=== PATIENT | female | born 1955 | race American Indian/Alaskan Native ===

== ENCOUNTER 2016-08-25 09:58 | Outpatient (CLI) | payer BC ==
--- NOTE | 2016-08-25 16:07 | Mammography Report ---
BILATERAL DIGITAL SCREENING MAMMOGRAM WITH CAD: 08/25/16 09:58:00 CLINICAL: Routine screening.Breast cancer survivor status post right partial mastectomy, APBI and chemotherapy in [id number]. Status post right benign needle biopsy on 02/06/14 with pathologic diagnosis of benign fat necrosis. COMPARISON:07/17/15 FINDINGS: The breasts are predominant fatty. Stable right postsurgical changes with a stable 4.4 cm central seroma. Benign calcifications of the right breast. No mass, suspicious architectural distortion or suspicious calcifications. IMPRESSION: No mammographic evidence of malignancy. BI-RADS CATEGORY: 2 -- Benign RECOMMENDATION: Routine mammographic screening in one year. COMMENT: Patient follow-up letters are generated via our [employer] application.
== END 2016-08-25 09:59 | disposition home or self-care (01) ==
LOC: SPVWC 09:58
PROVIDERS: ATTEND Internal Medicine
DX: Z12.31 Encounter for screening mammogram for malignant neoplasm of breast (principal); Z90.11 Acquired absence of right breast and nipple
CPT/HCPCS: 77067; G0202